=== PATIENT | female | born 2005 | race Caucasian/White ===

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

== ENCOUNTER → 2025-06-09 | Outpatient (CLI) | payer OTHER ==
[~2025-06-09] MED LIST: ONDA4ODT MM
== END ==
LOC: LAB SHORT 07:28 → LAB 07:28
DX: B35.1 Tinea unguium (principal)
CPT/HCPCS: 88305; 88312